=== PATIENT | female | born 1945 | race Caucasian/White ===

== ENCOUNTER → 2016-11-25 | Outpatient (REF) | payer MEDICARE, OTHER ==
[~2016-11-25] MED LIST: ASPI325T; HEPARIN FLUSH; JOINT ADVANTAGE GOLD PO; NAFCILLIN; OXACILLIN; SODIUM; VIAC8.5C PO; VIACTIVE; VICO5TAB
== END ==
LOC: M LAB REF 17:34
PROVIDERS: ATTEND Ophthalmology
DX: L72.0 Epidermal cyst (principal)

== ENCOUNTER 2017-04-02 12:03 | Day surgery (SDC) | payer MEDICARE ==
[~2017-04-02] VITALS: Ht 165.1 cm; Wt 78.5 kg
[~2017-04-02 12:03] MED LIST changes: +OFLOXACIN 0.3 % (OCUFLOX) OPTH SOL 5ML OS ONE; +PHENYLEPHRINE 2.5% OPHTH SOL 2ML OS ONE; +PROPARACAINE 0.5% OPHTH SOL 15ML OS ONE; +TROPICAMIDE 1% OPHTH SOLN 2ML OS ONE
[2017-04-02] MEDS ORDERED: LR 1,000 ML IV ONE (12:15)
[2017-04-02] MEDS ORDERED: ACETYLCHOLINE OPHTH SOLN 1% 2ML (MIOCHOL-E) As Ordered ONE (15:17)
[2017-04-02] MEDS ORDERED: DUOVISC (0.50ML VISCOAT/0.55ML PROVISC) OPHTH KIT As Ordered ONE (15:17)
[2017-04-02] MEDS ORDERED: BALANCED SALT IRRIGATION SOLUTION 500ML BAG (FOR OR EYE MACHINE) As Ordered ONE (15:17)
[2017-04-02] MEDS ORDERED: CEFUROXIME 1MG/0.1ML INTRACAMERAL INJ As Ordered ONE (15:17)
[2017-04-02] MEDS ORDERED: LIDOCAINE 0.75%/EPINEPHRINE 0.025% IN BSS 1ML SYR INTRACAMERAL (OR ONLY) As Ordered ONE (15:17)
[2017-04-02] MEDS ORDERED: POVIDONE-IODINE 5% OPHTH PREP SOL 30ML As Ordered ONE (15:17)
[2017-04-02] MEDS ORDERED: MIDAZOLAM INJ 2 MG/2 ML VIAL (J2250) As Ordered ONE (16:16)
[2017-04-02] MEDS ORDERED: fentaNYL 100 MCG/2 ML INJECTION (J3010) As Ordered ONE (16:16)
[2017-04-02 17:30] VITALS: BP 163/72
--- NOTE | 2017-04-03 11:34 | RO ---
DATE OF PROCEDURE: 04/02/2017 PREOPERATIVE DIAGNOSIS: Visually significant nuclear sclerotic cataract, left eye. POSTOPERATIVE DIAGNOSIS: Visually significant nuclear sclerotic cataract, left eye. PROCEDURE: Cataract extraction with use of phacoemulsification and placement of intraocular lens, AU00T0, 25 Diopter, left eye. SURGEON: Steve Kelly DO PROPERTY ACCOUNTANT: ANESTHESIA: Local with monitored anesthesia care (MAC). COMPLICATIONS: None. POSTOPERATIVE CONDITION: Stable. INDICATION FOR SURGERY: Blurred vision left eye affecting patient's activities of daily living. DESCRIPTION OF PROCEDURE: The patient was seen in the preoperative area and properly identified. The correct operative eye was identified and marked. Attention was turned to that eye. The patient received topical antibiotics in the preoperative area. The patient then received topical dilating drops consisting of tropicamide and phenylephrine. The patient was then transferred to the operating room. The correct side was re-identified. The patient received topical anesthetics and antibiotics on the surface of the eye. The eye was prepped and draped in a sterile fashion. The upper and lower eyelids were isolated with Tegaderm tape, and the lids were held open with an adjustable speculum. Using a sideport blade, a paracentesis incision was made. Intraocular preservative-free lidocaine was then injected into the anterior chamber. Viscoelastic was then injected into the anterior chamber through the paracentesis. Using a 2.65 mm sharp-tipped keratome, the anterior chamber was entered via a temporal clear corneal incision. A continuous curvilinear capsulorrhexis was created with the aid of a 26-gauge cystotome and Utrata forceps. Hydrodissection was performed with balanced salt solution (BSS) on a blunt cannula until the nucleus was freely mobile. The crystalline lens was phacoemulsified and aspirated. Additional cohesive viscoelastic was placed into the capsular bag to deepen it. An AU00T0 lens was placed into the capsular bag and confirmed by visualizing the continuous curvilinear capsulorrhexis. Additional irrigation and aspiration was used to remove cortical material and remaining viscoelastic. The clear corneal incision was hydrated with BSS on a blunt cannula. The lens was well positioned. The incisions were then tested for leaks and found to be negative. The eye was then palpated for appropriate pressure and adjusted accordingly with BSS. The eyelid speculum was carefully removed. TobraDex ointment was placed in the eye. An eye patch and shield were then secured over the eye. The patient tolerated the procedure well and was discharged to the recovery unit in a stable condition.
== END 2017-04-02 17:40 | disposition home or self-care (01) ==
LOC: M SDC 12:03
PROVIDERS: ATTEND Ophthalmology
DX: H25.12 Age-related nuclear cataract, left eye (principal); D64.9 Anemia, unspecified
CPT/HCPCS: 66984; J2250; J3010; V2632

== ENCOUNTER → 2017-12-31 | Outpatient (CLI) | payer MEDICARE ==
[2017-12-31 19:22] LABS: APPEARANCE, URINE CLEAR (CLEAR); BACTERIA, URINE AUTO NEGATIVE (NEGATIVE); BILIRUBIN, URINE AUTO NEGATIVE (NEGATIVE); BLOOD, URINE BLOOD NEGATIVE (NEGATIVE); COLOR, URINE YELLOW (YELLOW); GLUCOSE, URINE (UA) AUTO NEGATIVE (NEGATIVE); KETONE, URINE AUTO NEGATIVE (NEGATIVE); LEUKOCYTE ESTERASE, URINE AUTO NEGATIVE (NEGATIVE); MUCUS, URINE SMALL (NEGATIVE); NITRITE, URINE AUTO NEGATIVE (NEGATIVE); PROTEIN, URINE AUTO NEGATIVE (NEGATIVE); RBC, URINE AUTO 1 /HPF (0-3); SPECIFIC GRAVITY URINE AUTO 1.013 (1.002-1.035); SQUAMOUS EPITHELIAL CELL UR AU 0 /HPF (0-6); UROBILINOGEN, URINE AUTO 0.2 mg/dL (0.0-2.0); WBC, URINE AUTO 4 /HPF (0-3)
== END ==
LOC: M SMT 13:54
DX: N13.2 Hydronephrosis with renal and ureteral calculous obstruction (principal)
CPT/HCPCS: 81001

== ENCOUNTER 2018-02-17 09:58 | Day surgery (SDC) | payer MEDICARE ==
[~2018-02-17 09:58] MED LIST changes: -ASPI325T; +CONRAY-60 60% 50ML VIAL (Q9961) As Ordered; -HEPARIN FLUSH; -JOINT ADVANTAGE GOLD PO; +LIDOCAINE 1% MDV 20ML VIAL SQ; -NAFCILLIN; -OFLOXACIN 0.3 % (OCUFLOX) OPTH SOL 5ML OS ONE; -OXACILLIN; -PHENYLEPHRINE 2.5% OPHTH SOL 2ML OS ONE; -PROPARACAINE 0.5% OPHTH SOL 15ML OS ONE; -SODIUM; -TROPICAMIDE 1% OPHTH SOLN 2ML OS ONE; -VIAC8.5C PO; -VIACTIVE; -VICO5TAB
[2018-02-17] MEDS: LR 1,000 ML IV (10:45)
[2018-02-17 10:59] LABS: INR 0.93; PROTHROMBIN TIME 12.6 SECONDS (12.1-14.4)
[2018-02-17] MEDS ORDERED: dexameTHASONE 4 MG/ML 1ML VIAL (J1100) As Ordered (10:59)
[2018-02-17] MEDS ORDERED: ONDANSETRON 4MG/2ML VIAL (J2405) As Ordered (10:59)
[2018-02-17] MEDS ORDERED: LIDOCAINE 2% INJ 100 MG/5 ML SDV (FOR ANES.) As Ordered (10:59)
[2018-02-17] MEDS ORDERED: PROPOFOL 200 MG/20 ML VIAL As Ordered (10:59)
[2018-02-17] MEDS ORDERED: fentaNYL 100 MCG/2 ML INJECTION (J3010) As Ordered (11:00)
[2018-02-17] MEDS ORDERED: MIDAZOLAM INJ 2 MG/2 ML VIAL (J2250) As Ordered (11:00)
[2018-02-17] MEDS ORDERED: ePHEDrine SULFATE 25 MG/5 ML(5MG/ML) SYRINGE As Ordered (11:41)
[2018-02-17] MEDS ORDERED: KETOROLAC 60 MG/2 ML VIAL (J1885) As Ordered (11:54)
[2018-02-17] MEDS ORDERED: METOCLOPRAMIDE INJ 10MG/2ML VIAL (J2765) IV (12:30)
[2018-02-17] MEDS ORDERED: MEPERIDINE INJ 25 MG/ML VIAL (J2175) IV (12:30)
[2018-02-17] MEDS ORDERED: fentaNYL 100 MCG/2 ML INJECTION (J3010) IV (12:30)
[2018-02-17] MEDS ORDERED: LR 1,000 ML IV (12:30)
[2018-02-17] MEDS ORDERED: ONDANSETRON 4MG/2ML VIAL (J2405) IV (12:30)
[2018-02-17] MEDS ORDERED: PERCOCET 5MG/325MG TAB PO (12:30)
[2018-02-17] MEDS ORDERED: ACETAMINOPHEN 650MG ER TAB (TYLENOL ARTHRITIS) PO (14:00)
[2018-02-17] MEDS ORDERED: CIPROFLOXACIN 500 MG TAB PO (18:00)
== END 2018-02-17 14:02 | disposition home or self-care (01) ==
LOC: M SDC 14:02
DX: N20.1 Calculus of ureter (principal); N13.39 Other hydronephrosis; I10 Essential (primary) hypertension; E78.5 Hyperlipidemia, unspecified; D50.9 Iron deficiency anemia, unspecified; M17.0 Bilateral primary osteoarthritis of knee; M81.0 Age-related osteoporosis without current pathological fracture; M85.80 Other specified disorders of bone density and structure, unspecified site; R06.83 Snoring; Z79.899 Other long term (current) drug therapy; Z96.1 Presence of intraocular lens
CPT/HCPCS: 52353